=== PATIENT | male | born 1990 | race Two or more races ===

== ENCOUNTER 2020-05-06 11:56 | Emergency (ER) | payer BC ==
[~2020-05-06] VITALS: Ht 170.2 cm; Wt 95.0 kg
[2020-05-06] MEDS ORDERED: NEOSPORIN OINT. PKT 1 PACKET ONE (12:18)
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
[2020-05-06 13:12] VITALS: BP 124/74
== END 2020-05-06 13:48 | disposition home or self-care (01) ==
LOC: ED 12:50
DX: T23.291A Burn of second degree of multiple sites of right wrist and hand, initial encounter (principal); T23.222A Burn of second degree of single left finger (nail) except thumb, initial encounter; T23.171A Burn of first degree of right wrist, initial encounter; T23.122A Burn of first degree of single left finger (nail) except thumb, initial encounter; T31.0 Burns involving less than 10% of body surface; X08.8XXA Exposure to other specified smoke, fire and flames, initial encounter; Y93.89 Activity, other specified; Y92.410 Unspecified street and highway as the place of occurrence of the external cause; Y99.8 Other external cause status
CPT/HCPCS: 16020; 99282